=== PATIENT | male | born 1975 | race Caucasian/White ===

== ENCOUNTER 2018-05-03 17:50 | Emergency (ER) | payer OTHER ==
[2018-05-03 18:18] VITALS: BP 145/89; PULSE 70; TEMP 98.1; BMI 34.8
[2018-05-03] MEDS ORDERED: ACETAMINOPHEN 325 MG TABLET (FP) PO ONE (18:32)
[2018-05-03] MEDS ORDERED: ACETAMINOPHEN 325 MG TABLET (FP) ONE (18:35)
--- NOTE | 2018-05-03 18:42 | PDOC ---
History of Present Illness - General Chief Complaint: Injury Stated Complaint: RT ANKLE INJURY Time Seen by Provider: 05/03/18 17:56 - History of Present Illness Initial Comments: 05/03/18 18:39 The patient is a 42 year old male with no significant past medical history who presents to the ED s/p right ankle injury yesterday. Patient reports he stepped into a pothole, and his right ankle turned inward last night. He states he fell but broke his fall with his hands. Pt has been able to bear weight but with some pain. Today, patient reports a throbbing pain to his right ankle and notes it is a 8/10 in severity. He also reports mild swelling and bruising to the ankle. He states he is still able to walk on his right foot but is limping. Patient reports taking advil and applying ice to his ankle with slight relief of present symptoms. Denies head injury or loss of consciousness. Denies focal numbness/weakness/ tingling. Denies any other symptoms. Past History - Past Medical History Allergies/Adverse Reactions: Allergies Allergy/AdvReac Type Severity Reaction Status Date / Time Penicillins Allergy Verified 05/03/18 17:52 Home Medications: Ambulatory Orders NK [No Known Home Medication] 05/03/18 COPD: No - Suicide/Smoking/Psychosocial Hx Smoking History: Never smoked Have you smoked in the past 12 months: No Hx Alcohol Use: (occasional) Review of Systems - Review of Systems Comments:: 05/03/18 18:41 "GENERAL/CONSTITUTIONAL: No fever or chills. No weakness. HEAD, EYES, EARS, NOSE AND THROAT: No change in vision. No ear pain or discharge. No sore throat. CARDIOVASCULAR: No chest pain or shortness of breath. RESPIRATORY: No cough, wheezing, or hemoptysis. GASTROINTESTINAL: No nausea, vomiting, diarrhea or constipation. GENITOURINARY: No dysuria, frequency, or change in urination. MUSCULOSKELETAL: + right ankle injury with pain and swelling. No neck or back pain. SKIN: No rash NEUROLOGIC: No headache, vertigo, loss of consciousness, or change in strength/ sensation. ENDOCRINE: No increased thirst. No abnormal weight change. HEMATOLOGIC/LYMPHATIC: No anemia, easy bleeding, or history of blood clots. ALLERGIC/IMMUNOLOGIC: No hives or skin allergy. " *Physical Exam - Vital Signs Last Vital Signs Temp Pulse Resp BP Pulse Ox 98.1 F 70 18 145/89 100 05/03/18 17:50 05/03/18 17:50 05/03/18 17:50 05/03/18 17:50 05/03/18 17:50 - Physical Exam Comments: 05/03/18 18:41 "GENERAL: Awake, alert, and fully oriented, in no acute distress. HEAD: No signs of trauma EYES: PERRLA, EOMI, sclera anicteric, conjunctiva clear ENT: Auricles normal inspection, hearing grossly normal, nares patent, oropharynx clear without exudates. Moist mucosa NECK: Nontender, no stepoffs, Normal ROM, supple, no lymphadenopathy, JVD, or masses LUNGS: Breath sounds equal, clear to auscultation bilaterally. No wheezes, and no crackles HEART: Regular rate and rhythm, normal S1 and S2, no murmurs, rubs or gallops ABDOMEN: Soft, nontender, normoactive bowel sounds. No guarding, no rebound. No masses EXTREMITIES: + R ankle with mild ecchymosis mild to the medial malleolus + tenderness posterior to the medial malleolus. No clubbing or cyanosis. No cords , or erythema. BUE with no bony tenderness, no snuffbox tenderness NEUROLOGICAL: Cranial nerves II through XII intact. 5/5 strength and sensation in all extremities, Normal speech, normal gait, normal cerebellar function SKIN: Warm, Dry, normal turgor, no rashes or lesions noted. ED Treatment Course - RADIOLOGY Radiology Studies Ordered: Category Date Time Status ANKLE-RIGHT [RAD] Stat Radiology 05/03/18 18:31 Ordered - Medications Given in the ED: ED Medications Discontinued Medications Generic Name Dose Route Start Last Admin Trade Name Freq PRN Reason Stop Dose Admin Acetaminophen 650 mg 05/03/18 18:32 05/03/18 18:36 Tylenol - PO 05/03/18 18:33 650 mg ONCE ONE Administration Medical Decision Making - Medical Decision Making 05/03/18 18:41 42 M with R ankle injury after twisting it yesterday. - XR to r/o fx - Tylenol Pt signed out to Dr. Zamora at 7PM, pending XR and re-evaluation *DC/Admit/Observation/Transfer Diagnosis at time of Disposition: Right ankle sprain Qualifiers: Encounter type: initial encounter Involved ligament of ankle: unspecified ligament Qualified Code(s): S93.401A - Sprain of unspecified ligament of right ankle, initial encounter - Discharge Dispostion Disposition: HOME Condition at time of disposition: Stable - Referrals Referrals: Dain Washington MD [Staff Physician] - - Patient Instructions Printed Discharge Instructions: DI for Ankle Sprain Additional Instructions: Tylenol Motrin as needed for pain. Where the Scott wrap and ankle splint/Aircast as needed for ambulation, Follow-up with an orthopedist if you are not improved within 1 week. If you need an orthopedist call Dr. Washington. Return to the emergency department immediately with ANY new, persistent or worsening symptoms. Continue any medications as previously prescribed by your physician. You should follow up with your primary doctor as soon as possible regarding today's emergency department visit. . Please make sure your doctor reviews the results of your emergency evaluation. Thank you for coming to the Emergency Department today for your care. It was a pleasure to see you today. Please note that your evaluation is INCOMPLETE until you follow-up with your doctor. - Post Discharge Activity - Attestations Physician Attestion: 05/05/18 14:01 I, Dr. Dain Garner MD, attest that this document has been prepared under my direction and personally reviewed by me in its entirety. I further attest, that it accurately reflects all work, treatment, procedures and medical decision -making performed by me.
--- NOTE | 2018-05-03 19:22 | PDOC ---
*Physical Exam - Vital Signs Last Vital Signs Temp Pulse Resp BP Pulse Ox 98.1 F 70 18 145/89 100 05/03/18 17:50 05/03/18 17:50 05/03/18 17:50 05/03/18 17:50 05/03/18 17:50 ED Treatment Course - Medications Given in the ED: ED Medications Discontinued Medications Generic Name Dose Route Start Last Admin Trade Name Margi PRN Reason Stop Dose Admin Acetaminophen 650 mg 05/03/18 18:32 05/03/18 18:36 Tylenol - PO 05/03/18 18:33 650 mg ONCE ONE Administration Progress Note - Progress Note Progress Note: Care of this patient was transferred to me from Dr. Garner at 1900 hrs. Patient is a 42-year-old male who twisted his right ankle. Patient has ecchymosis and tenderness with swelling medially. Patient has an x-ray pending. 19:20 X-ray reviewed by me no acute fracture or pathology. Assessment and plan: Patient given an Scott wrap Aircast and does not want crutches for ambulation. As patient is ambulating with minimal difficulty. Patient discharged home with orthopedic follow-up. *DC/Admit/Observation/Transfer Diagnosis at time of Disposition: Right ankle sprain Qualifiers: Encounter type: initial encounter Involved ligament of ankle: unspecified ligament Qualified Code(s): S93.401A - Sprain of unspecified ligament of right ankle, initial encounter - Discharge Dispostion Disposition: HOME Condition at time of disposition: Stable Decision to Admit order: No - Referrals Referrals: Dain Washington MD [Staff Physician] - - Patient Instructions Printed Discharge Instructions: DI for Ankle Sprain Additional Instructions: Tylenol Motrin as needed for pain. Where the Scott wrap and ankle splint/Aircast as needed for ambulation, Follow-up with an orthopedist if you are not improved within 1 week. If you need an orthopedist call Dr. Washington. Return to the emergency department immediately with ANY new, persistent or worsening symptoms. Continue any medications as previously prescribed by your physician. You should follow up with your primary doctor as soon as possible regarding today's emergency department visit. . Please make sure your doctor reviews the results of your emergency evaluation. Thank you for coming to the Emergency Department today for your care. It was a pleasure to see you today. Please note that your evaluation is INCOMPLETE until you follow-up with your doctor. - Post Discharge Activity
== END 2018-05-03 19:35 | disposition home or self-care (01) ==
LOC: FER 17:50
PROC: 2W3QX1Z Immobilization of Right Lower Leg using Splint (ICD-10-PCS; principal; 2018-05-03)
DX: S93.401A Sprain of unspecified ligament of right ankle, initial encounter (principal); X58.XXXA Exposure to other specified factors, initial encounter; Y93.89 Activity, other specified; Y92.9 Unspecified place or not applicable
CPT/HCPCS: 73610-TC-RT-FY; 99283-25